=== PATIENT | female | born 1990 | race African-American/Black ===

== ENCOUNTER 2018-08-15 06:01 | Emergency (ER) | payer MEDICAID, OTHER ==
[~2018-08-15] VITALS: Ht 175.3 cm; Wt 91.0 kg
[2018-08-15] MEDS ORDERED: KETOROLAC 30MG/ML VIAL IV STA (06:44)
[2018-08-15] MEDS ORDERED: DICYCLOMINE 10 MG/5 ML ORAL SYR PO STA (06:44)
[2018-08-15] MEDS ORDERED: VISCOUS LIDOCAINE 2% 15 ML UDC PO STA (06:44)
[2018-08-15] MEDS ORDERED: ONDANSETRON HCL 4MG/2ML INJ IV STA (06:44)
[2018-08-15] MEDS ORDERED: MAGNESIUM/ALUMINUM HYDROXIDE/SIMETHICONE 30ML UDC PO STA (06:44)
[2018-08-15] MEDS ORDERED: SODIUM CHLORIDE 0.9% 1,000 ML IV ONE (06:44)
[2018-08-15 07:51] LABS: BASOPHILS % 0.3 % (0.0-2.0); HEMATOCRIT. 42.9 % (36.0-48.0); HEMOGLOBIN. 14.2 g/dL (12.0-16.0); LYMPHOCYTES % 13.4 % (20.0-50.0); MEAN CORPUSCULAR HEMOGLOBIN 28.7 pg (28.0-32.0); MEAN CORPUSCULAR VOLUME 86.7 fL (81.0-99.0); MEAN PLATELET VOLUME 8.8 fl (7.4-10.4); MONOCYTES % 3.7 % (2.0-8.0); NEUTROPHILS % 82.6 % (40.0-76.0); PLATELET 265 x1000/uL (130-400); RED BLOOD CELL COUNT 4.95 mill/uL (4.2-5.4); RED CELL DISTRIBUTION WIDTH 13.3 % (11.6-14.6)
[2018-08-15 07:56] LABS: CHLORIDE 107 mEq/L (98-107)
[2018-08-15 08:04] LABS: ETHANOL BLOOD < 10 mg/dL
[2018-08-15 08:14] LABS: HCG SCREEN NEGATIVE
[2018-08-15] MEDS ORDERED: ONDANSETRON 4MG/5ML UDC PO ONE (09:45)
[2018-08-15] MEDS ORDERED: OXYCODONE HCL/ACETAMINOPHEN 5/325MG TABLET PO ONE (09:45)
[2018-08-15 10:18] VITALS: BP 118/67
== END 2018-08-15 10:45 | disposition home or self-care (01) ==
LOC: ER 06:01
DX: K29.20 Alcoholic gastritis without bleeding (principal); F10.10 Alcohol abuse, uncomplicated; Y90.9 Presence of alcohol in blood, level not specified
CPT/HCPCS: 36415; 80053; 83690; 84703; 85025; 96361; 96374; 96375; 99283; G0482; J1885; J2405; J7030

== ENCOUNTER 2019-10-08 08:10 | Emergency (ER) | payer OTHER ==
[~2019-10-08] VITALS: Ht 167.6 cm; Wt 90.0 kg
[2019-10-08] MEDS ORDERED: ONDANSETRON 4MG ODT PO ONE (09:15)
[2019-10-08] MEDS ORDERED: IBUPROFEN 800MG TABLET PO ONE (09:15)
[2019-10-08 09:35] LABS: CLARITY URINE CLOUDY (CLEAR); COLOR URINE YELLOW (YELLOW); KETONES URINE NEGATIVE (NEGATIVE); LEUKOCYTE ESTERASE URINE TRACE (NEGATIVE); NITRITE URINE NEGATIVE (NEGATIVE); OCCULT BLOOD URINE 1+ (NEGATIVE); PH URINE 5.5 (4.5-8.0); PROTEIN URINE 3+ (NEGATIVE); SPECIFIC GRAVITY URINE 1.018 (1.005-1.030); UROBILINOGEN URINE 0.2 E.U./dL (0.2-1.0)
[2019-10-08 09:52] LABS: BASOPHILS % 0.6 % (0.0-2.0); EOSINOPHILS % 0.6 % (0.0-5.0); HEMATOCRIT. 47.6 % (36.0-48.0); LYMPHOCYTES % 33.4 % (20.0-50.0); MEAN CORPUSCULAR HEMOGLOBIN 28.7 pg (28.0-32.0); MEAN CORPUSCULAR VOLUME 85.4 fL (81.0-99.0); MONOCYTES % 14.8 % (2.0-8.0); NEUTROPHILS % 50.6 % (40.0-76.0); PLATELET 215 x1000/uL (130-400); RED BLOOD CELL COUNT 5.57 mill/uL (4.2-5.4); RED CELL DISTRIBUTION WIDTH 13.4 % (11.6-14.6)
[2019-10-08 09:59] LABS: CHLORIDE 106 mEq/L (98-107)
[2019-10-08 10:16] LABS: HCG SCREEN NEGATIVE
[2019-10-08] MEDS ORDERED: POTASSIUM CHLORIDE 20MEQ TABLET SR PO ONE (11:30)
[2019-10-08 11:46] VITALS: BP 146/82
== END 2019-10-08 11:47 | disposition home or self-care (01) ==
LOC: ER 08:10
DX: R11.2 Nausea with vomiting, unspecified (principal); E87.6 Hypokalemia; N39.0 Urinary tract infection, site not specified; B34.9 Viral infection, unspecified
CPT/HCPCS: 36415; 80053; 81003; 81025; 84703; 85025; 87804; 99284; Q0162